=== PATIENT | female | born 1965 | race American Indian/Alaskan Native ===

== ENCOUNTER 2016-10-16 13:07 | Emergency (ER) | payer BC, MEDICAID ==
[2016-10-16] MEDS ORDERED: Aspirin 81 MG Tab.Chew PO ONE (13:33)
[2016-10-16] MEDS ORDERED: Sodium Chloride 0.9% 10 ML Syringe FLUSH PRN (13:33)
--- NOTE | 2016-10-16 14:06 | EDM.PDOC ---
ED HPI GENERAL MEDICAL PROBLEM - General Chief Complaint: Chest Pain Stated Complaint: [facility] Time Seen by Provider: 10/16/16 13:22 Source of Information: Reports: Patient, RN Notes Reviewed - History of Present Illness INITIAL COMMENTS - FREE TEXT/NARRATIVE: 50-year-old lady comes in with left anterior chest discomfort she states that started this morning about 7 hours ago. She has an achy type feeling of her left anterior chest without radiation. She did take a couple of nitroglycerin at home this morning which did not help. She states the nitroglycerin pills were somewhat cold. His have history of hypertension and coronary artery disease having had one stent placed about 10 years ago. She is on aspirin and Plavix. She has not taken her aspirin yet today. She claims that she has been taking her Plavix on a regular basis. No abdominal pain nausea vomiting or diaphoresis. The pain is somewhat worse with deep breathing. She does not feel short of breath. No recent cough fever or chills. 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 Other Treatments [employer]PERATING ENGINEER: 0500 with no relief, repeated 0525 with no relief, took oxycodone at 0600 Left Upper Chest Pain Score (Numeric/FACES): 7 - Related Data Allergies Allergy/AdvReac Type Severity Reaction Status Date / Time ibuprofen Allergy Hives Verified 10/16/16 13:31 Home Meds: Home Meds Aspirin [Halfprin] 81 mg PO DAILY 10/16/16 [History] Clopidogrel [Plavix] 75 mg PO DAILY 10/16/16 [History] Cyclobenzaprine [Flexeril] 10 mg PO TID PRN 10/16/16 [History] Diltiazem HCl [Diltiazem 24Hr ER] 180 mg PO DAILY 10/16/16 [History] Lisinopril 20 mg PO DAILY 10/16/16 [History] Meclizine HCl [Travel Sickness] 25 mg PO DAILY PRN 10/16/16 [History] Metoprolol Succinate [Toprol XL] 100 mg PO DAILY 10/16/16 [History] Nitroglycerin [Nitrostat] 0.4 mg SL Q5M PRN 10/16/16 [History] Omeprazole 20 mg PO BID 10/16/16 [History] Pregabalin [Lyrica] 100 mg PO TID PRN 10/16/16 [History] hydrOXYzine Pamoate [Hydroxyzine Pamoate] 25 - 50 mg PO BEDTIME PRN 10/16/16 [ History] oxyCODONE 5 mg PO Q4H PRN 10/16/16 [History] ED ROS GENERAL - Review of Systems Review Of Systems: See Below Constitutional: Denies: Fever, Chills, Diaphoresis HEENT: Denies: Throat Pain Respiratory: Denies: Shortness of Breath, Wheezing, Cough Cardiovascular: Reports: Chest Pain GI/Abdominal: Denies: Abdominal Pain, Nausea, Vomiting Musculoskeletal: Reports: Shoulder Pain (Mild discomfort towards left shoulder) . Denies: Neck Pain Skin: Reports: No Symptoms Neurological: Reports: No Symptoms ED EXAM, GENERAL - Physical Exam Exam: See Below General Appearance: Alert Throat/Mouth: Normal Inspection Head: Atraumatic. No: Facial Swelling Neck: Supple, Full Range of Motion Respiratory/Chest: No Respiratory Distress, Lungs Clear, Normal Breath Sounds, Other (Patient does have area of definite tenderness left upper chest) Cardiovascular: Regular Rate, Rhythm GI/Abdominal: Soft, Non-Tender. No: Guarding Back Exam: No: CVA Tenderness (L), CVA Tenderness (R) Extremities: Normal Inspection. No: Pedal Edema, Leg Pain Neurological: Alert, Oriented, No Motor/Sensory Deficits Skin Exam: Warm, Dry, Normal Color EKG INTERPRETATION EKG Date: 10/16/16 Rhythm: NSR [place]: Normal P-Wave: Present QRS: Normal ST-T: Other (There is mild flattening of the T-wave lead 3) Course - Vital Signs Last Recorded V/S: Last Vital Signs Temp 97.3 F 10/16/16 13:22 Pulse 53 L 10/16/16 13:22 Resp 16 10/16/16 13:22 BP 137/77 10/16/16 13:22 Pulse Ox 98 10/16/16 13:22 - Orders/Labs/Meds Orders: Active Orders 24 hr Category Date Time Status EKG 12 Lead [EKG Documentation Completion] [RC] STAT Care 10/16/16 13:33 Active Peripheral IV Care [RC] . DIRECTED Care 10/16/16 13:34 Active Sodium Chloride 0.9% [Saline Flush] Med 10/16/16 13:33 Active 10 ml FLUSH ASDIRECTED PRN Peripheral IV Insertion Adult [OM.PC] Stat Oth 10/16/16 13:33 Ordered Medication Orders Sodium Chloride (Saline Flush) 10 ml FLUSH ASDIRECTED PRN PRN Reason: Keep Vein Open Last Admin: 10/16/16 13:50 Dose: 10 ml Labs: Laboratory Tests 10/16/16 10/16/16 10/16/16 Range/Units 14:00 14:00 15:25 WBC 6.74 (3.98-10.04) K/mm3 RBC 5.66 H (3.98-5.22) M/mm3 Hgb 16.1 H (11.2-15.7) gm/L Hct 48.0 H (34.1-44.9) % MCV 84.8 (79.4-94.8) fl MCH 28.4 (25.6-32.2) pg MCHC 33.5 (32.2-35.5) g/dl RDW Std Deviation 48.8 H (36.4-46.3) fL Plt Count 230 (182-369) K/mm3 MPV 9.7 (9.4-12.3) fl Neut % (Auto) 52.4 (34.0-71.1) % Lymph % (Auto) 34.6 (19.3-51.7) % [place] % (Auto) 6.8 (4.7-12.5) % Eos % (Auto) 5.2 (0.7-5.8) Baso % (Auto) 0.7 (0.1-1.2) % Neut # (Auto) 3.53 (1.56-6.13) K/mm3 Lymph # (Auto) 2.33 (1.18-3.74) K/mm3 [place] # (Auto) 0.46 H (0.24-0.36) K/mm3 Eos # (Auto) 0.35 (0.04-0.36) K/mm3 Baso # (Auto) 0.05 (0.01-0.08) K/mm3 Sodium 137 (136-145) mEq/L Potassium 4.0 (3.5-5.1) mEq/L Chloride 103 (98-107) mEq/L Carbon Dioxide 25 (21-32) mEq/L Anion Gap 13.0 (5-15) BUN 8 (7-18) mg/dL Creatinine 0.8 (0.55-1.02) mg/dL Est Cr Clr Drug Dosing 79.99 mL/min Estimated GFR (MDRD) > 60 (>60) mL/min BUN/Creatinine Ratio 10.0 L (14-18) Glucose 105 (74-106) mg/dL Calcium 8.5 (8.5-10.1) mg/dL Total Bilirubin 0.4 (0.2-1.0) mg/dL AST 30 (15-37) U/L ALT 69 H (14-59) U/L Alkaline Phosphatase 51 (46-116) U/L Troponin I < 0.017 < 0.017 (0.00-0.056) ng/mL Total Protein 7.6 (6.4-8.2) g/dl Albumin 3.7 (3.4-5.0) g/dl Globulin 3.9 gm/dL Albumin/Globulin Ratio 1.0 (1-2) Meds: Medications Generic Name Dose Route Start Last Admin Trade Name Freq PRN Reason Stop Dose Admin Sodium Chloride 10 ml 10/16/16 13:33 10/16/16 13:50 Saline Flush FLUSH 10 ml ASDIRECTED PRN Administration Keep Vein Open Discontinued Medications Generic Name Dose Route Start Last Admin Trade Name Freq PRN Reason Stop Dose Admin Hydrocodone Bitart/Acetaminophen 1 tab 10/16/16 15:14 10/16/16 15:28 [place] 325-5 Mg PO 10/16/16 15:15 1 tab ONETIME ONE Administration Aspirin 162 mg 10/16/16 13:33 10/16/16 14:04 Aspirin PO 10/16/16 13:34 162 mg ONETIME ONE Administration - Re-Assessments/Exams Free Text/Narrative Re-Assessment/Exam: 10/16/16 16:37 Repeat troponin is also come back negative. potline monitor showed sinus rhythm , no ectopy. She still does have some discomfort but improved from arrival. On multiple checks she continues to have quite significant tenderness of the left anterior chest, discharge instructions as documented Departure - Departure Time of Disposition: 16:33 Disposition: Home, Self-Care 01 Condition: Fair Clinical Impression: Atypical chest pain, Chest wall pain Instructions: Chest Wall Pain, [id number], Nonspecific Chest Pain Referrals: PCP,None [Primary Care Provider] - Forms: ED Department Discharge Additional Instructions: Rest, no heavy lifting, you can try alternate ice and heat to area of discomfort for symptomatic relief, continue current medications as prescribed, return to ED if symptoms worsening in any way, follow-up with your regular medical provider Tuesday or Tuesday if not getting back to normal fairly quickly as expected - My Orders Last 24 Hours: My Active Orders 10/16/16 13:33 EKG 12 Lead [EKG Documentation Completion] [RC] STAT Sodium Chloride 0.9% [Saline Flush] 10 ml FLUSH ASDIRECTED PRN Peripheral IV Insertion Adult [OM.PC] Stat 10/16/16 13:34 Peripheral IV Care [RC] . DIRECTED - Assessment/Plan Last 24 Hours: My Active Orders 10/16/16 13:33 EKG 12 Lead [EKG Documentation Completion] [RC] STAT Sodium Chloride 0.9% [Saline Flush] 10 ml FLUSH ASDIRECTED PRN Peripheral IV Insertion Adult [OM.PC] Stat 10/16/16 13:34 Peripheral IV Care [RC] . DIRECTED
--- NOTE | 2016-10-16 14:43 | CR ---
Chest: Portable view of the chest was obtained. Comparison: No previous study is available. Heart size and mediastinum are within normal limits for portable technique. Minimal nodular density is noted within the left lung base. Lungs otherwise are clear. Bony structures are grossly intact. Impression: 1. Minimal nodular density within the left lung base. Recommend follow-up chest x-ray in [place] and lateral projections in 6 months to further evaluate for stability, disappearance or other change. This follow-up study would occur in April,. 2. Nothing acute is appreciated. Diagnostic code #9
[2016-10-16] MEDS ORDERED: Acetaminophen/HYDROcodone 325-5 MG Tab PO ONE (15:14)
[2016-10-16 17:11] VITALS: BP 123/78
== END 2016-10-16 17:05 | disposition home or self-care (01) ==
LOC: JD.ED 13:07
DX: R07.89 Other chest pain (principal); Z79.82 Long term (current) use of aspirin; Z79.02 Long term (current) use of antithrombotics/antiplatelets; Z88.6 Allergy status to analgesic agent; Z79.899 Other long term (current) drug therapy
CPT/HCPCS: 36415; 71010; 80053; 84484; 85025; 93005; 99285; A9270; J7050; 99284

== ENCOUNTER 2017-09-18 21:24 | Emergency (ER) | payer MEDICAID ==
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
== END 2017-09-19 02:03 | disposition expired ==
LOC: JD.ED 21:24
DX: I46.9 Cardiac arrest, cause unspecified (principal); Z79.01 Long term (current) use of anticoagulants; Z79.899 Other long term (current) drug therapy; Z88.6 Allergy status to analgesic agent; V89.2XXA Person injured in unspecified motor-vehicle accident, traffic, initial encounter
CPT/HCPCS: 92950; 99285; G0390; 99284